=== PATIENT | female | born 1955 | race Caucasian/White ===

== ENCOUNTER 2017-12-19 10:46 | Day surgery (SDC) | payer OTHER ==
[~2017-12-19] VITALS: Ht 152.4 cm; Wt 60.0 kg
[2017-12-19] MEDS ORDERED: SODIUM CHLORIDE 0.9% 1,000 ML IV ONE (11:33)
[2017-12-19 11:34] VITALS: BP 130/77
[2017-12-19] MEDS ORDERED: HAWT150C PO (11:52)
[2017-12-19] MEDS ORDERED: [UNRECOGNIZED DRUG - OTHER] (11:52)
[2017-12-19] MEDS ORDERED: UBID100C41 PO (11:52)
[2017-12-19] MEDS ORDERED: METO25TA91 PO (11:52)
[2017-12-19] MEDS ORDERED: MV-M1CAP15 PO (11:52)
[2017-12-19] MEDS ORDERED: CHOL2000 PO (11:55)
[2017-12-19] MEDS ORDERED: RIVA20TA PO (11:55)
[2017-12-19] MEDS ORDERED: [UNRECOGNIZED DRUG - OTHER] (11:55)
[2017-12-19] MEDS ORDERED: ASPI-496 PO (11:55)
[2017-12-19] MEDS ORDERED: MIDAZOLAM 1 MG/ML, 2ML ONE (12:51)
[2017-12-19] MEDS ORDERED: FENTANYL PF 100 MCG/2ML ONE (12:51)
[2017-12-19] MEDS ORDERED: VERAPAMIL 2.5 MG/ML, 2ML ONE (12:52)
[2017-12-19] MEDS ORDERED: HEPARIN 1,000 UNITS/ML, 10ML ONE (12:52)
[2017-12-19] MEDS ORDERED: SODIUM CHLORIDE 0.9% 1,000 ML IV SCH (13:22)
== END 2017-12-19 16:05 | disposition home or self-care (01) ==
LOC: CACL 10:46
PROVIDERS: ATTEND Internal Medicine Cardiovascular Disease
DX: I34.0 Nonrheumatic mitral (valve) insufficiency (principal); I10 Essential (primary) hypertension; G43.909 Migraine, unspecified, not intractable, without status migrainosus; Z88.8 Allergy status to other drugs, medicaments and biological substances
CPT/HCPCS: 93458; 99156; C1769; C1894; J1644; J2250; J3010; Q9967